=== PATIENT | male | born 1965 | race Caucasian/White ===

== ENCOUNTER 2017-04-02 11:30 | Emergency (ER) | payer OTHER ==
--- NOTE | 2017-04-02 14:32 | DIAGNOSTIC IMAGING REPORT ---
PROCEDURE: US SCROTUM/TESTICLE INDICATION: SCROTAL SWELLING TECHNIQUE: Samson scale and color Doppler sonographic images through the scrotum were obtained. COMPARISON: None. FINDINGS: The right testicle measures 3.9 x 2.0 x 2.6 cm and the left measures 4.1 x 2.2 x 2.5 cm Both testicles demonstrate homogeneous echotexture without solid mass, cyst, or numerous microcalcifications. Color Doppler imaging demonstrates normal and symmetric arterial and venous testicular flow. No suspicious hyperemia. The epididymi are normal in size, echotexture, and vascularity. Small hydroceles are present bilaterally. No significant scrotal skin thickening. Partially reducible left inguinal hernia. Defect in the fascia approximately 1.1 cm. Does not appear to extend into the scrotum IMPRESSION: 1. Partially reducible left inguinal hernia. Defect in the fascia approximately 1.1 cm. Does not appear to extend into the scrotum 2. Small bilateral hydroceles
--- NOTE | 2017-04-02 15:01 | ED NURSING NOTES ---
Clinical Report - Nurses [facility] [address] [place] [address] 04/02/2017 11:32 Patient: EDUIN CONCEPCION TRIAGE Triage time 12:04. Acuity: LEVEL 3. Chief Complaint: ABDOMINAL PAIN and NAUSEA. Alert. No acute distress. DESEAN COMA SCORE: [place] Coma Scale: 15- eyes open spontaneously (4); best verbal response- oriented x 4 (5); best motor response- obeys commands (6). --12:12 Sulema King R.N. 12:06 04/02/17. BP: 106/73. HR: 87. RR: 18. O2 saturation: 98% on room air. Temp: 98.2 F (oral). Pain level now: 05/19. --12:12 Sulema King R.N. Weight: 86.6 kg stated. Height/Length: 71 inches Per Patient. BMI: 26.6. --12:11 Sulema King R.N. Medications TraZODone HCl Oral. --12:10 Sulema King R.N. Allergies No Known Drug Allergy. --12:10 Sulema King R.N. History Arrived by private vehicle. Historian: patient. Accompanied by family. Primary physician (Ana). Onset. (2 days getting worse). Describes the quality as "pain". Relates location as in the left lower quadrant. ( saw his doctor, then had US done at [place] (in February), has a referral to surgeon but hasn't seen him yet). ( from left testicle up into abd). SOCIAL HX: Former smoker. No alcohol use or drug use. FALL RISK ASSESSMENT: Fall risk assessment completed. No fall risk identified. FUNCTIONAL ASSESSMENT: Functional assessment: no impairments noted. LEARNING NEEDS ASSESSMENT: The learning needs assessment revealed no barriers. --12:12 Sulema King R.N. PROBLEMS: Night Terrors. Back Pain. --12:11 Sulema King R.N. ADDITIONAL SURGERIES: Back Surgery. --12:11 Sulema King R.N. Assessment GENERAL / NEURO / PSYCH: Alert. Oriented X 4. Appears in no acute distress. Patient appears calm and cooperative. RESPIRATORY: Respirations not labored. SKIN: Skin is warm and dry. --12:12 Sulema King R.N. Interventions ID band on patient. To treatment room. --12:12 Sulema King R.N. DISPOSITION / DISCHARGE Departure time: 1500. Condition at departure: unchanged and stable. No learning barriers present. Discharge instructions provided and reviewed with the patient and spouse. Patient and spouse verbalized understanding. Written instructions provided in Estonian. The patient was discharged by the nurse practitioner. He was discharged home and accompanied by spouse. He left the Emergency Department ambulatory and via private vehicle. Spouse driving. --15:00 Suzanne Salcido 14:59 04/02/17. BP: 108/66. HR: 78. RR: 16. O2 saturation: 98%. --15:00 Suzanne Salcido. Locked/Released at 04/02/2017 15:00 by Suzanne Salcido,
--- NOTE | 2017-04-02 15:01 | ED ORDER SUMMARY ---
..... Patient: EDUIN CONCEPCION OrderSheet [facility] VisitID: [id number] [address] [place] [address] 52y, M Registration Date/Time: 04/02/2017 ORDER SHEET Weight: 86.6 kg (stated) Allergies: No Known Drug Allergy GENERAL ORDERS: US Scrotum/Testicular (eval L ing hernia-increased pain, trouble urinating. Hernia x 3-4yrs. No prior imaging. Testicular pain) Urgent (13:13 04/02/2017 SThom A.R.N.P.) (Ac 13:14 Flavio) UA-Culture if indicated Urgent (13:43 04/02/2017 SThom A.R.N.P.) (Ack 13:46 ALawrence ER Tech1) (14:45 ALawrence ER Tech1) MEDICATION ORDERS: IV FLUIDS: ORDER SHEET NOTES: [Electronically signed by Suzanne Salcido (15:00 04/02/2017)] This document has not been locked and should not be saved in the medical record.
--- NOTE | 2017-04-02 15:01 | ED CLINICAL REPORT ---
Clinical Report - Physicians/Mid Levels [facility] [address] [place] [address] 04/02/2017 11:32 Patient: EDUIN CONCEPCION Time Seen: 1315 PM. Arrived- By private vehicle. Historian- patient. HISTORY OF PRESENT ILLNESS Chief Complaint: RIGHT and LEFT TESTICULAR PAIN and URINARY RETENTION. (painful L ing hernia). Is still present. The problem is described as moderate. No penile discharge or flank pain. He has had discomfort with urination and testicular pain. Sexual history is noncontributory. Similar symptoms previously: None. Recent medical care: The patient was seen recently at another facility in a clinic. REVIEW OF SYSTEMS No fever, chills, flank pain, hematuria or abdominal pain. No vomiting, diarrhea or back pain. PAST HISTORY See nurses notes. ( hernia x 3-4 yrs-no formal imaging or dx. Painful past wk). No history of hypertension or diabetes mellitus. Surgeries: Back surgery. SOCIAL HISTORY Former smoker. No alcohol use or drug use. ADDITIONAL NOTES The nursing notes have been reviewed. PHYSICAL EXAM Vital Signs: 04/02/2017 12:06 BP: 106/73. HR: 87. RR: 18. O2 saturation: 98%. Temp: 98.2 F. Pain level now: 7/10. Have been reviewed and appear to be correct. Appearance: Alert. Oriented X3. No acute distress. ENT: Normal external inspection. Neck: Neck supple. Respiratory: No respiratory distress. Abdomen: Soft and nontender. : Moderate left-sided hernia mass with tenderness (partially reducible). No erythema. Moderate tenderness (L inguinal area,testicle). No urethral discharge, genital lesion or scrotal swelling. Skin: Skin warm and dry. Normal skin color. Normal skin turgor. Neuro: Oriented X 3. LABS, X-RAYS, AND EKG Testicular Scan: (The right testicle measures 3.9 x 2.0 x 2.6 cm and the left measures 4.1 x 2.2 x 2.5 cm Both testicles demonstrate homogeneous echotexture without solid mass, cyst, or numerous microcalcifications. Color Doppler imaging demonstrates normal and symmetric arterial and venous testicular flow. No suspicious hyperemia. The epididymi are normal in size, echotexture, and vascularity. Small hydroceles are present bilaterally. No significant scrotal skin thickening. Partially reducible left inguinal hernia. Defect in the fascia approximately 1.1 cm. Does not appear to extend into the scrotum IMPRESSION: 1. Partially reducible left inguinal hernia. Defect in the fascia approximately 1.1 cm. Does not appear to extend into the scrotum 2. Small bilateral hydroceles). The study was interpreted by the radiologist. Laboratory Tests: Laboratory tests have been ordered, with results reviewed and considered in the medical decision making process. UA-Culture if indicated: (DOROTA: 04/02/2017 14:00) ( MsgRcvd 04/02/2017 14:43) Final results Test Result Flag Units (Reference) URINE COLOR YELLOW URINE APPEARANCE CLEAR URINE GLUCOSE NEGATIVE (NEGATIVE) URINE BILIRUBIN ICTOTEST NEGATIVE (NEGATIVE) URINE KETONE TRACE (NEGATIVE) URINE SPECIFIC GRAVITY >= 1.030 (1.010-1.030) URINE PH 6.0 (5.0-8.0) URINE PROTEIN 1+ (NEGATIVE) URINE UROBILINOGEN 0.2 EU/dL (0.2-1.0) URINE NITRITE NEGATIVE (NEGATIVE) URINE BLOOD NEGATIVE (NEGATIVE) URINE LEUK ESTERASE NEGATIVE (NEGATIVE) URINE RBC 0-1 rbc/hpf (0-1) URINE WBC 0-1 wbc/hpf (0-1) URINE EPITHELIAL CELLS 1-3 EPI/hpf (0-5) URINE BACTERIA FEW (1+) (NONE SEEN) URINE COMMENT CULT NOT INDICATED 20 CALCIUM OXALATE CRYSTALS/HPF1+ AMORPHOUS CRYSTALSURINE CULTURES ARE SET-UP BASED ON THE FOLLOWING CRITERIA:POSITIVE NITRITEPOSITIVE LEUKOCYTE ESTERASEGREATER THAN 10 WHITE BLOOD CELLSMODERATE (2+) OR GREATER BACTERIA . PROGRESS AND PROCEDURES Course of Care: Hx and exam c/w hernia. Spoke with surgeon, Dr Israel, who advised pt could be seen next week for surg. consult. 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 Consult obtained from surgery. Phone consult only. Will see patient in 7 days. Patient counseled in person regarding the patient's test results, diagnosis and need for follow-up. Disposition: Discharged. Condition: stable. CLINICAL IMPRESSION Left inguinal hernia. No obstruction or gangrene. INSTRUCTIONS No strenuous activity. (Limit lifting. Call surgeon when you get home for an appointment next week. Ice the area when you are not up and about. If you start running fever over 100, the area becomes red and firm, or just marked increase in pain, return to ER>). Follow-up: Follow up with a specialist. Understanding of the discharge instructions verbalized by patient. Follow-up with: El Israel MD, General Surgeon, , [facility], [address] [place] [address] Follow up even if well. Call for the next available appointment. (Electronically signed by So Proctor A.R.N.P. 04/02/2017 17:27)
--- NOTE | 2017-04-02 15:01 | ED NURSING NOTES ---
Clinical Report - Nurses [facility] [address] [place] [address] 04/02/2017 11:32 Patient: EDUIN CONCEPCION TRIAGE Triage time 12:04. Acuity: LEVEL 3. Chief Complaint: ABDOMINAL PAIN and NAUSEA. Alert. No acute distress. DESEAN COMA SCORE: [place] Coma Scale: 15- eyes open spontaneously (4); best verbal response- oriented x 4 (5); best motor response- obeys commands (6). --12:12 Sulema King R.N. 12:06 04/02/17. BP: 106/73. HR: 87. RR: 18. O2 saturation: 98% on room air. Temp: 98.2 F (oral). Pain level now: 05/19. --12:12 Sulema King R.N. Weight: 86.6 kg stated. Height/Length: 71 inches Per Patient. BMI: 26.6. --12:11 Sulema King R.N. Medications TraZODone HCl Oral. --12:10 Sulema King R.N. Allergies No Known Drug Allergy. --12:10 Sulema King R.N. History Arrived by private vehicle. Historian: patient. Accompanied by family. Primary physician (Ana). Onset. (2 days getting worse). Describes the quality as "pain". Relates location as in the left lower quadrant. ( saw his doctor, then had US done at [facility] (in February), has a referral to surgeon but hasn't seen him yet). ( from left testicle up into abd). SOCIAL HX: Former smoker. No alcohol use or drug use. FALL RISK ASSESSMENT: Fall risk assessment completed. No fall risk identified. FUNCTIONAL ASSESSMENT: Functional assessment: no impairments noted. LEARNING NEEDS ASSESSMENT: The learning needs assessment revealed no barriers. --12:12 Sulema King R.N. PROBLEMS: Night Terrors. Back Pain. --12:11 Sulema King R.N. ADDITIONAL SURGERIES: Back Surgery. --12:11 Sulema King R.N. Assessment GENERAL / NEURO / PSYCH: Alert. Oriented X 4. Appears in no acute distress. Patient appears calm and cooperative. RESPIRATORY: Respirations not labored. SKIN: Skin is warm and dry. --12:12 Sulema King R.N. Interventions ID band on patient. To treatment room. --12:12 Sulema King R.N. DISPOSITION / DISCHARGE Departure time: 1500. Condition at departure: unchanged and stable. No learning barriers present. Discharge instructions provided and reviewed with the patient and spouse. Patient and spouse verbalized understanding. Written instructions provided in Divehi. The patient was discharged by the nurse practitioner. He was discharged home and accompanied by spouse. He left the Emergency Department ambulatory and via private vehicle. Spouse driving. --15:00 Suzanne Salcido 14:59 04/02/17. BP: 108/66. HR: 78. RR: 16. O2 saturation: 98%. --15:00 Suzanne Salcido. Locked/Released at 04/02/2017 15:00 by Suzanne Salcido,
--- NOTE | 2017-04-02 15:01 | ED ORDER SUMMARY ---
..... Patient: EDUIN CONCEPCION OrderSheet [facility] VisitID: [id number] [address] [place] [address] 52y, M Registration Date/Time: 04/02/2017 ORDER SHEET Weight: 86.6 kg (stated) Allergies: No Known Drug Allergy GENERAL ORDERS: US Scrotum/Testicular (eval L ing hernia-increased pain, trouble urinating. Hernia x 3-4yrs. No prior imaging. Testicular pain) Urgent (13:13 04/02/2017 SThom A.R.N.P.) (Ac 13:14 Flavio) UA-Culture if indicated Urgent (13:43 04/02/2017 SThom A.R.N.P.) (Ack 13:46 ALawrence ER Tech1) (14:45 ALawrence ER Tech1) MEDICATION ORDERS: IV FLUIDS: ORDER SHEET NOTES: [Electronically signed by Suzanne Salcido (15:00 04/02/2017)] This document has not been locked and should not be saved in the medical record.
--- NOTE | 2017-04-02 15:01 | ED CLINICAL REPORT ---
Clinical Report - Physicians/Mid Levels [facility] [address] [place] [address] 04/02/2017 11:32 Patient: EDUIN CONCEPCION Time Seen: 1315 PM. Arrived- By private vehicle. Historian- patient. HISTORY OF PRESENT ILLNESS Chief Complaint: RIGHT and LEFT TESTICULAR PAIN and URINARY RETENTION. (painful L ing hernia). Is still present. The problem is described as moderate. No penile discharge or flank pain. He has had discomfort with urination and testicular pain. Sexual history is noncontributory. Similar symptoms previously: None. Recent medical care: The patient was seen recently at another facility in a clinic. REVIEW OF SYSTEMS No fever, chills, flank pain, hematuria or abdominal pain. No vomiting, diarrhea or back pain. PAST HISTORY See nurses notes. ( hernia x 3-4 yrs-no formal imaging or dx. Painful past wk). No history of hypertension or diabetes mellitus. Surgeries: Back surgery. SOCIAL HISTORY Former smoker. No alcohol use or drug use. ADDITIONAL NOTES The nursing notes have been reviewed. PHYSICAL EXAM Vital Signs: 04/02/2017 12:06 BP: 106/73. HR: 87. RR: 18. O2 saturation: 98%. Temp: 98.2 F. Pain level now: 7/10. Have been reviewed and appear to be correct. Appearance: Alert. Oriented X3. No acute distress. ENT: Normal external inspection. Neck: Neck supple. Respiratory: No respiratory distress. Abdomen: Soft and nontender. : Moderate left-sided hernia mass with tenderness (partially reducible). No erythema. Moderate tenderness (L inguinal area,testicle). No urethral discharge, genital lesion or scrotal swelling. Skin: Skin warm and dry. Normal skin color. Normal skin turgor. Neuro: Oriented X 3. LABS, X-RAYS, AND EKG Testicular Scan: (The right testicle measures 3.9 x 2.0 x 2.6 cm and the left measures 4.1 x 2.2 x 2.5 cm Both testicles demonstrate homogeneous echotexture without solid mass, cyst, or numerous microcalcifications. Color Doppler imaging demonstrates normal and symmetric arterial and venous testicular flow. No suspicious hyperemia. The epididymi are normal in size, echotexture, and vascularity. Small hydroceles are present bilaterally. No significant scrotal skin thickening. Partially reducible left inguinal hernia. Defect in the fascia approximately 1.1 cm. Does not appear to extend into the scrotum IMPRESSION: 1. Partially reducible left inguinal hernia. Defect in the fascia approximately 1.1 cm. Does not appear to extend into the scrotum 2. Small bilateral hydroceles). The study was interpreted by the radiologist. Laboratory Tests: Laboratory tests have been ordered, with results reviewed and considered in the medical decision making process. UA-Culture if indicated: (DOROTA: 04/02/2017 14:00) ( MsgRcvd 04/02/2017 14:43) Final results Test Result Flag Units (Reference) URINE COLOR YELLOW URINE APPEARANCE CLEAR URINE GLUCOSE NEGATIVE (NEGATIVE) URINE BILIRUBIN ICTOTEST NEGATIVE (NEGATIVE) URINE KETONE TRACE (NEGATIVE) URINE SPECIFIC GRAVITY >= 1.030 (1.010-1.030) URINE PH 6.0 (5.0-8.0) URINE PROTEIN 1+ (NEGATIVE) URINE UROBILINOGEN 0.2 EU/dL (0.2-1.0) URINE NITRITE NEGATIVE (NEGATIVE) URINE BLOOD NEGATIVE (NEGATIVE) URINE LEUK ESTERASE NEGATIVE (NEGATIVE) URINE RBC 0-1 rbc/hpf (0-1) URINE WBC 0-1 wbc/hpf (0-1) URINE EPITHELIAL CELLS 1-3 EPI/hpf (0-5) URINE BACTERIA FEW (1+) (NONE SEEN) URINE COMMENT CULT NOT INDICATED 20 CALCIUM OXALATE CRYSTALS/HPF1+ AMORPHOUS CRYSTALSURINE CULTURES ARE SET-UP BASED ON THE FOLLOWING CRITERIA:POSITIVE NITRITEPOSITIVE LEUKOCYTE ESTERASEGREATER THAN 10 WHITE BLOOD CELLSMODERATE (2+) OR GREATER BACTERIA . PROGRESS AND PROCEDURES Course of Care: Hx and exam c/w hernia. Spoke with surgeon, Dr Israel, who advised pt could be seen next week for surg. consult. 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 Consult obtained from surgery. Phone consult only. Will see patient in 7 days. Patient counseled in person regarding the patient's test results, diagnosis and need for follow-up. Disposition: Discharged. Condition: stable. CLINICAL IMPRESSION Left inguinal hernia. No obstruction or gangrene. INSTRUCTIONS No strenuous activity. (Limit lifting. Call surgeon when you get home for an appointment next week. Ice the area when you are not up and about. If you start running fever over 100, the area becomes red and firm, or just marked increase in pain, return to ER>). Follow-up: Follow up with a specialist. Understanding of the discharge instructions verbalized by patient. Follow-up with: El Israel MD, General Surgeon, , [facility], [address] [place] [address] Follow up even if well. Call for the next available appointment. (Electronically signed by So Proctor A.R.N.P. 04/02/2017 17:27)
--- NOTE | 2017-04-02 17:27 | ED MAR SUMMARY ---
..... Medication Administration Record [facility] [address] [id number] Patient: EDUNI CONCEPCION Visit ID: [id number] 52y, M Weight: 86.6 kg Height/Length: 71 in BMI: 26.6 ALLERGIES: No Known Drug Allergy
--- NOTE | 2017-04-02 17:27 | ED DISCHARGE INSTRUCTIONS ---
Patient: EDUIN CONCEPCION General Instructions [facility] VisitID: [id number] [address] [place] [address] 52y, M Registration Date/Time: 04/02/2017 Left inguinal hernia. No obstruction or gangrene. INSTRUCTIONS No strenuous activity. (Limit lifting. Call surgeon when you get home for an appointment next week. Ice the area when you are not up and about. If you start running fever over 100, the area becomes red and firm, or just marked increase in pain, return to ER>). Follow-up: Follow up with a specialist. Understanding of the discharge instructions verbalized by patient. Follow-up with: El Israel MD, General Surgeon, , [facility], [address] [place] [address] Follow up even if well. Call for the next available appointment. ADDITIONAL INFORMATION Hernia [Adult] A hernia is a bulge of the intestines or surrounding tissues through a tear in the muscle of the abdomen or groin. This may occur as a result of excessive coughing, heavy lifting or being overweight. It can also occur at the site of prior surgery. When a hernia first appears it may be painful due to stretching and tearing of the muscle fibers. When you lie down, the bulge should reduce in size or disappear completely. If it does not, and you are unable to flatten it with your hand, medical attention is needed at once. Home Care: Avoid heavy lifting and straining or any activities that cause pain in the hernia. Follow Up with your physician as directed by our staff. Get Prompt Medical Attention if any of the following occur: Increasing size of the hernia Increasing pain in the hernia A hernia that does not get smaller when you lie down Hardening of the hernia Abdominal swelling, fever or repeated vomiting Pain moves to the lower right abdomen (just below the waistline) or spreads to the back You have been given the following additional information: Hernia (Inguinal, Ventral, Umbilical) No strenuous activity. (Electronically signed by So Proctor A.R.N.P. 04/02/2017 17:27)
--- NOTE | 2017-04-02 17:27 | ED MED RECONCILIATION SUMMARY ---
Patient: EDUIN CONCEPCION Medication Reconciliation Report [facility] VisitID: [id number] [address] [place] [address] 52y, M Registration Date/Time: 04/02/2017 Weight: 86.6 kg Height/Length: 71 in. BMI: 26.6 ALLERGIES: No Known Drug Allergy The patient's Home Medications are listed below: THE FOLLOWING MEDICATIONS NEED TO BE RECONCILED: TraZODone HCl Oral The source(s) of the original Home Medication information: Not obtained. The following Medications were given to the patient in the Emergency Department: None. The following Medications were prescribed to the patient: None.
--- NOTE | 2017-04-02 17:27 | ED MAR SUMMARY ---
..... Medication Administration Record [facility] [address], [place] [id number] Patient: EDUIN CONCEPCION Visit ID: [id number] 52y, M Weight: 86.6 kg Height/Length: 71 in BMI: 26.6 ALLERGIES: No Known Drug Allergy
--- NOTE | 2017-04-02 17:27 | ED DISCHARGE INSTRUCTIONS ---
Patient: EDUIN CONCEPCION General Instructions [facility] VisitID: [id number] [address] [place] [address] 52y, M Registration Date/Time: 04/02/2017 Left inguinal hernia. No obstruction or gangrene. INSTRUCTIONS No strenuous activity. (Limit lifting. Call surgeon when you get home for an appointment next week. Ice the area when you are not up and about. If you start running fever over 100, the area becomes red and firm, or just marked increase in pain, return to ER>). Follow-up: Follow up with a specialist. Understanding of the discharge instructions verbalized by patient. Follow-up with: El Israel MD, General Surgeon, , [facility], [address] [place] [address] Follow up even if well. Call for the next available appointment. ADDITIONAL INFORMATION Hernia [Adult] A hernia is a bulge of the intestines or surrounding tissues through a tear in the muscle of the abdomen or groin. This may occur as a result of excessive coughing, heavy lifting or being overweight. It can also occur at the site of prior surgery. When a hernia first appears it may be painful due to stretching and tearing of the muscle fibers. When you lie down, the bulge should reduce in size or disappear completely. If it does not, and you are unable to flatten it with your hand, medical attention is needed at once. Home Care: Avoid heavy lifting and straining or any activities that cause pain in the hernia. Follow Up with your physician as directed by our staff. Get Prompt Medical Attention if any of the following occur: Increasing size of the hernia Increasing pain in the hernia A hernia that does not get smaller when you lie down Hardening of the hernia Abdominal swelling, fever or repeated vomiting Pain moves to the lower right abdomen (just below the waistline) or spreads to the back You have been given the following additional information: Hernia (Inguinal, Ventral, Umbilical) No strenuous activity. (Electronically signed by So Proctor A.R.N.P. 04/02/2017 17:27)
--- NOTE | 2017-04-02 17:27 | ED MED RECONCILIATION SUMMARY ---
Patient: EDUIN CONCEPCION Medication Reconciliation Report [facility] VisitID: [id number] [address] [place] [address] 52y, M Registration Date/Time: 04/02/2017 Weight: 86.6 kg Height/Length: 71 in. BMI: 26.6 ALLERGIES: No Known Drug Allergy The patient's Home Medications are listed below: THE FOLLOWING MEDICATIONS NEED TO BE RECONCILED: TraZODone HCl Oral The source(s) of the original Home Medication information: Not obtained. The following Medications were given to the patient in the Emergency Department: None. The following Medications were prescribed to the patient: None.
== END 2017-04-02 15:00 | disposition home or self-care (01) ==
LOC: ED SRH 11:30
DX: K40.90 Unilateral inguinal hernia, without obstruction or gangrene, not specified as recurrent (principal)
CPT/HCPCS: 90004

== ENCOUNTER 2017-04-20 16:12 | Emergency (ER) | payer OTHER ==
--- NOTE | 2017-04-20 18:20 | DIAGNOSTIC IMAGING REPORT ---
PROCEDURE: XR KNEE 4 VIEWS - RIGHT INDICATION: TRAUMA/INJURY TECHNIQUE: Four views. COMPARISON: None. FINDINGS: Osseous structures and joint spaces are normal. IMPRESSION: 1. Normal right knee.
--- NOTE | 2017-04-20 18:20 | DIAGNOSTIC IMAGING REPORT ---
PROCEDURE: XR TIBIA AND FIBULA - RIGHT INDICATION: TRAUMA/INJURY TECHNIQUE: AP and lateral views. COMPARISON: None. FINDINGS: Osseous structures are normal. IMPRESSION: 1. Normal right tibia and fibula.
--- NOTE | 2017-04-20 18:21 | DIAGNOSTIC IMAGING REPORT ---
PROCEDURE: XR ANKLE 3 OR 4 VIEWS - RIGHT INDICATION: TRAUMA/INJURY TECHNIQUE: Four views. COMPARISON: None. FINDINGS: Osseous structures and joint spaces are normal. IMPRESSION: 1. Normal right ankle.
--- NOTE | 2017-04-20 18:22 | ED NURSING NOTES ---
Clinical Report - Nurses [facility] [address] [place] [address] 04/20/2017 16:14 Patient: EDUIN CONCEPCION TRIAGE Triage time 16:36. Acuity: LEVEL 3. Chief Complaint: INJURY TO RIGHT KNEE. INJURY TO THE RIGHT THIGH, RIGHT KNEE, RIGHT LEG, RIGHT ANKLE and RIGHT FOOT. DESEAN COMA SCORE: [place] Coma Scale: 15- eyes open spontaneously (4); best verbal response- oriented x 4 (5); best motor response- obeys commands (6). --16:48 Chivo Carvajal R.N. 16:36 04/20/17. BP: 122/68 (regular adult cuff) taken on the left arm, while sitting. HR: 75. RR: 16. O2 saturation: 97% on room air. Temp: 98.1 F (oral). Pain level now: 07/20. --16:48 Chivo Carvajal R.N. Weight: 89.8 kg stated. Height/Length: 71 inches Per Patient. BMI: 27.6. --16:45 Chivo Carvajal R.N. Medications TraZODone HCl Oral. --16:39 Chivo Carvajal R.N. Allergies No Known Drug Allergy. --16:39 Chivo Carvajal R.N. History Arrived by private vehicle. Historian: patient. Accompanied by family. Mechanism of injury: fell (Fell from a 6 foot ladder onto soft dirt. He landed with his right leg at an angle. C/o pain from the mid thigh to the heel. Obvious swelling. Onset approx 1130.). Treatment SERVER SERVICE ASSISTANT: None. SOCIAL HX: Light tobacco smoker (cigarette)- less than 1/2 a pack per day. No alcohol use or drug use. ABUSE ASSESSMENT: No report of abuse. --16:48 Chivo Carvajal R.N. PROBLEMS: Hernia. Night Terrors. Immunizations. Back Pain. --16:41 Chivo Carvajal R.N. ADDITIONAL SURGERIES: Back Surgery. --16:41 Chivo Carvajal R.N. Interventions ID band on patient. To treatment room. --16:48 Chivo Carvajal R.N. PHYSICAL ASSESSMENT late entry -16:36. To room via wheelchair. GENERAL / NEURO / PSYCH: Oriented X 4. Alert. Appears in pain. EXTREMITIES: Extremities do not exhibit normal ROM. Limited ROM present in the right thigh, right knee, right lower leg, right ankle and right foot. Capillary refill is less than 2 seconds in the extremities. Extremity pulses are within normal limits. Abnormal gait. The patient was unable to bear weight. Neuro-vascular status intact to the extremity. Right thigh. Right knee. Right leg. Right ankle. Right foot. ( right leg swelling). SKIN: Skin intact. Skin is warm and dry. --16:57 Chivo Carvajal R.N. NURSING PROGRESS NOTES 16:54 04/20/2017 Dilaudid (HYDROmorphone HCl PF) IM 2 mg given. Given in the right deltoid. Allergies verified, confirmed 5 rights and sedative warning given to the patient and patient's family. --16:55 Chivo Carvajal R.N. 16:54 04/20/2017 Phenergan (Promethazine HCl) IM 12.5 mg given. Given in the left deltoid. Allergies verified, confirmed 5 rights and sedative warning given to the patient and patient's family. --16:55 Chivo Carvajal R.N. Patient transported to radiology by stretcher with tech. --16:56 Chivo Carvajal R.N. late entry -16:40. Reassurance given. Two patient identifiers checked. Call light placed in reach. Bed placed in lowest position. Brakes of bed on. Patient ready for evaluation- chart flagged. ( at the bedside). --16:58 Chivo Carvajal R.N. 17:32 04/20/2017 Dilaudid IM Response: no adverse reaction pain is improving. Symptoms have improved the patient feels better. --17:57 Chivo Carvajal R.N. 17:32 04/20/2017 Phenergan IM Response: no adverse reaction pain is improving. Symptoms have improved the patient feels better. --17:57 Chivo Carvajal R.N. DISPOSITION / DISCHARGE Departure time: 1835. Condition at departure: improved and stable. No learning barriers present. Discharge instructions provided and reviewed with the patient and spouse. Reviewed warnings. Reviewed medication(s). Treatments reviewed. Patient verbalized understanding. Written instructions provided in Macedonian. The patient was discharged by the physician licensed nursing assistant. He was discharged home and accompanied by spouse. He left the Emergency Department ambulatory on crutches and via private vehicle. Spouse driving. --18:37 Chivo Carvajal R.N. 18:35 04/20/17. BP: 118/66 (regular adult cuff) taken on the left arm, while sitting. HR: 72. RR: 16. O2 saturation: 95% on room air. Temp: 98.1 F (oral). Pain level now: 01/17. --18:37 Chivo Carvajal R.N. Locked/Released at 04/20/2017 18:37 by Chivo Carvajal R.N.
--- NOTE | 2017-04-20 18:22 | ED CLINICAL REPORT ---
Clinical Report - Physicians/Mid Levels [place] [address] [place] [address] 04/20/2017 16:14 Patient: DEUIN CONCEPCION Arrived- By private vehicle. Historian- patient. HISTORY OF PRESENT ILLNESS Chief Complaint: Injury to right leg and right knee. The injury happened just prior to arrival. Occurred at home. The patient sustained a direct blow. Fell. Patient is experiencing moderate pain. Patient denies injury to the head or neck. (Patient fell from 6 feet After he was attempting To disturb the diabetes, when he fell as a started moving and he became scared. Patient will directly onto his extended right lower extremity and consequently into his right side, patient reports pain from ankle to his thigh. Denies prior major injuries to his thigh, knee, leg or ankle. Hasnot been able to ambulate since. Incident occurred just prior to arrival. Patient denies any to the head. Denies any loss of consciousness.). REVIEW OF SYSTEMS The patient complains of pain on weight bearing. No skin laceration. All systems otherwise negative, except as recorded above. PAST HISTORY See nurses notes. The patient has not had a prior injury to the same area. SOCIAL HISTORY Smoker- current status unknown. No alcohol use. ADDITIONAL NOTES The nursing notes have been reviewed. PHYSICAL EXAM Appearance: Alert. No acute distress. Head: Head atraumatic. ENT: Ears normal. CVS: Normal heart rate and rhythm. Heart sounds normal. Respiratory: No respiratory distress. Breath sounds normal. Abdomen: No visible injury. Soft. Back: Normal inspection. No tenderness. No vertebral point tenderness. Skin: Skin warm. Normal skin color. Extremities: Right hip. No tenderness or swelling. Right thigh. (bulge mid femur.). Right knee: moderate tenderness and swelling located in the patella. No ecchymosis or puncture wound. Right leg: tenderness and swelling. Gait: (diff exam of Ivonne cassidy due to pain). He was unable to bear weight. Neuro, Vascular and Tendons: Vascular status intact. Capillary refill not prolonged. Motor intact. Tendon function intact. No functional tendon deficit. Neuro: Oriented X 3. LABS, X-RAYS, AND EKG Rt Knee X-ray: (IMPRESSION: 1. Normal right knee. Electronically Final signed by:Usama Crooks MD 04/20/2017 6:15:48 PM). Rt Tib/Fib X-ray: (IMPRESSION: 1. Normal right tibia and fibula. Electronically Final signed by:Usama Crooks MD 04/20/2017 6:14:59 PM). Rt Ankle X-ray: (IMPRESSION: 1. Normal right ankle. Electronically Final signed by:Usama Crooks MD 04/20/2017 6:16:38 PM). PROGRESS AND PROCEDURES Splint Application: Time: 1839Apr 20 2017. Knee immobilizer applied to right lower extremity. Splint applied by tech with direct supervision by me. Reassessed extremity following splint application. Neurovascular intact. Follow-up recommended within 5 days. Fitted for crutches by the tech. Course of Care: Patient with a quad bulge, concerning for a quad injury, difficult exam, patient has difficulty with range of motion of the right knee, secondary to recent injury, no signs of fracture of the right knee, and distal femur, tib-fib or any signs of fracture to the right ankle. Patient is otherwise stable, no injury to the head or neck. Patient placed in a brace, and is to follow up outpatient. Patient is stable. Physical exam findings are improved. Symptoms better. Patient/family counseled. Disposition: Discharged. CLINICAL IMPRESSION Sprain. Muscle strain of the anterior aspect of the left lower leg. Muscle tear of the anterior aspect of the right lower leg. Sprain of the tibiofibular ligament of the right ankle. INSTRUCTIONS Apply ice. Use crutches. Elevate affected areas above chest level. No weight bearing. Do not work for seven days. Prescription Medications: Hydrocodone/APAP 7.5mg / 325mg: take 1 orally every 6 hours. Dispense twenty-five (25). No refill. Motrin 800 mg tablets: take 1 tablet orally every 8 hours for 5 days, as needed for pain. Dispense twenty (20). No refill. Substitution is permissible. Follow-up: Follow up with a specialist. [facility] with: [facility], , [address] , [place], [phone] Follow up. Call for an appointment. (Electronically signed by Narcisa Beckford P.A.-C 04/20/2017 19:04)
--- NOTE | 2017-04-20 18:22 | ED ORDER SUMMARY ---
..... Patient: EDUIN CONCEPCION OrderSheet [facility] VisitID: [id number] [place] [address] 52y, M Registration Date/Time: 04/20/2017 ORDER SHEET Weight: 89.8 kg (stated) Allergies: No Known Drug Allergy GENERAL ORDERS: Knee 4V Right Urgent (16:49 04/20/2017 EKoroleva P.A.-C) (Ack 16:52 KHoerner) (17:11 Del) Tibia/Fibula Right Urgent (16:49 04/20/2017 EKoroleva P.A.-C) (Ack 16:52 KHoerner) (17:11 Del) Ankle 3 or 4V Right Urgent (16:49 04/20/2017 EKoroleva P.A.-C) (Ack 16:52 KHoerner) (17:11 Del) Knee Immobilizer (18:11 04/20/2017 EKoroleva P.A.-C) (18:30 JSimbeck R.N.) Crutches (18:11 04/20/2017 EKoroleva P.A.-C) (18:30 JSimbeck R.N.) MEDICATION ORDERS: Dilaudid IM 2 mg (HIGH ALERT MEDICATION, NOW) (16:47 04/20/2017 EKoroleva P.A.-C) (16:55 JSimbeck R.N.) Phenergan IM 12.5 mg (HIGH ALERT MEDICATION, NOW) (16:47 04/20/2017 EKoroleva P.A.-C) (16:55 JSimbeck R.N.) IV FLUIDS: ORDER SHEET NOTES: [Electronically signed by Chivo Carvajal R.N. (18:38 04/20/2017)] [Electronically signed by Narcisa BeckfordAShane-C (19:04 04/20/2017)] [Electronically locked/signed by Chivo Carvajal R.N. (18:38 04/20/2017)]
--- NOTE | 2017-04-20 18:22 | ED ORDER SUMMARY ---
..... Patient: EDUIN CONCEPCION OrderSheet [facility] VisitID: [id number] [place] [address] 52y, M Registration Date/Time: 04/20/2017 ORDER SHEET Weight: 89.8 kg (stated) Allergies: No Known Drug Allergy GENERAL ORDERS: Knee 4V Right Urgent (16:49 04/20/2017 EKoroleva P.A.-C) (Ack 16:52 KHoerner) (17:11 Del) Tibia/Fibula Right Urgent (16:49 04/20/2017 EKoroleva P.A.-C) (Ack 16:52 KHoerner) (17:11 Del) Ankle 3 or 4V Right Urgent (16:49 04/20/2017 EKoroleva P.A.-C) (Ack 16:52 KHoerner) (17:11 Del) Knee Immobilizer (18:11 04/20/2017 EKoroleva P.A.-C) (18:30 JSimbeck R.N.) Crutches (18:11 04/20/2017 EKoroleva P.A.-C) (18:30 JSimbeck R.N.) MEDICATION ORDERS: Dilaudid IM 2 mg (HIGH ALERT MEDICATION, NOW) (16:47 04/20/2017 EKoroleva P.A.-C) (16:55 JSimbeck R.N.) Phenergan IM 12.5 mg (HIGH ALERT MEDICATION, NOW) (16:47 04/20/2017 EKoroleva P.A.-C) (16:55 JSimbeck R.N.) IV FLUIDS: ORDER SHEET NOTES: [Electronically signed by Chivo Carvajal R.N. (18:38 04/20/2017)] [Electronically signed by Narcisa BeckfordAShane-C (19:04 04/20/2017)] [Electronically locked/signed by Chivo Carvajal R.N. (18:38 04/20/2017)]
--- NOTE | 2017-04-20 18:22 | ED CLINICAL REPORT ---
Clinical Report - Physicians/Mid Levels [place] [address] [place] [address] 04/20/2017 16:14 Patient: EDUIN CONCEPCION Arrived- By private vehicle. Historian- patient. HISTORY OF PRESENT ILLNESS Chief Complaint: Injury to right leg and right knee. The injury happened just prior to arrival. Occurred at home. The patient sustained a direct blow. Fell. Patient is experiencing moderate pain. Patient denies injury to the head or neck. (Patient fell from 6 feet After he was attempting To disturb the diabetes, when he fell as a started moving and he became scared. Patient will directly onto his extended right lower extremity and consequently into his right side, patient reports pain from ankle to his thigh. Denies prior major injuries to his thigh, knee, leg or ankle. Hasnot been able to ambulate since. Incident occurred just prior to arrival. Patient denies any to the head. Denies any loss of consciousness.). REVIEW OF SYSTEMS The patient complains of pain on weight bearing. No skin laceration. All systems otherwise negative, except as recorded above. PAST HISTORY See nurses notes. The patient has not had a prior injury to the same area. SOCIAL HISTORY Smoker- current status unknown. No alcohol use. ADDITIONAL NOTES The nursing notes have been reviewed. PHYSICAL EXAM Appearance: Alert. No acute distress. Head: Head atraumatic. ENT: Ears normal. CVS: Normal heart rate and rhythm. Heart sounds normal. Respiratory: No respiratory distress. Breath sounds normal. Abdomen: No visible injury. Soft. Back: Normal inspection. No tenderness. No vertebral point tenderness. Skin: Skin warm. Normal skin color. Extremities: Right hip. No tenderness or swelling. Right thigh. (bulge mid femur.). Right knee: moderate tenderness and swelling located in the patella. No ecchymosis or puncture wound. Right leg: tenderness and swelling. Gait: (diff exam of Ivonne cassidy due to pain). He was unable to bear weight. Neuro, Vascular and Tendons: Vascular status intact. Capillary refill not prolonged. Motor intact. Tendon function intact. No functional tendon deficit. Neuro: Oriented X 3. LABS, X-RAYS, AND EKG Rt Knee X-ray: (IMPRESSION: 1. Normal right knee. Electronically Final signed by:Usama Crooks MD 04/20/2017 6:15:48 PM). Rt Tib/Fib X-ray: (IMPRESSION: 1. Normal right tibia and fibula. Electronically Final signed by:Usama Crooks MD 04/20/2017 6:14:59 PM). Rt Ankle X-ray: (IMPRESSION: 1. Normal right ankle. Electronically Final signed by:Usama Crooks MD 04/20/2017 6:16:38 PM). PROGRESS AND PROCEDURES Splint Application: Time: 1839Apr 20 2017. Knee immobilizer applied to right lower extremity. Splint applied by tech with direct supervision by me. Reassessed extremity following splint application. Neurovascular intact. Follow-up recommended within 5 days. Fitted for crutches by the tech. Course of Care: Patient with a quad bulge, concerning for a quad injury, difficult exam, patient has difficulty with range of motion of the right knee, secondary to recent injury, no signs of fracture of the right knee, and distal femur, tib-fib or any signs of fracture to the right ankle. Patient is otherwise stable, no injury to the head or neck. Patient placed in a brace, and is to follow up outpatient. Patient is stable. Physical exam findings are improved. Symptoms better. Patient/family counseled. Disposition: Discharged. CLINICAL IMPRESSION Sprain. Muscle strain of the anterior aspect of the left lower leg. Muscle tear of the anterior aspect of the right lower leg. Sprain of the tibiofibular ligament of the right ankle. INSTRUCTIONS Apply ice. Use crutches. Elevate affected areas above chest level. No weight bearing. Do not work for seven days. Prescription Medications: Hydrocodone/APAP 7.5mg / 325mg: take 1 orally every 6 hours. Dispense twenty-five (25). No refill. Motrin 800 mg tablets: take 1 tablet orally every 8 hours for 5 days, as needed for pain. Dispense twenty (20). No refill. Substitution is permissible. Follow-up: Follow up with a specialist. [facility] with: [facility], , [address] , [place], [address] Follow up. Call for an appointment. (Electronically signed by Narcisa Beckford P.A.-C 04/20/2017 19:04)
--- NOTE | 2017-04-20 18:22 | ED NURSING NOTES ---
Clinical Report - Nurses [facility] [address] [place] [address] 04/20/2017 16:14 Patient: EDUIN CONCEPCION TRIAGE Triage time 16:36. Acuity: LEVEL 3. Chief Complaint: INJURY TO RIGHT KNEE. INJURY TO THE RIGHT THIGH, RIGHT KNEE, RIGHT LEG, RIGHT ANKLE and RIGHT FOOT. DESEAN COMA SCORE: [place] Coma Scale: 15- eyes open spontaneously (4); best verbal response- oriented x 4 (5); best motor response- obeys commands (6). --16:48 Chivo Carvajal R.N. 16:36 04/20/17. BP: 122/68 (regular adult cuff) taken on the left arm, while sitting. HR: 75. RR: 16. O2 saturation: 97% on room air. Temp: 98.1 F (oral). Pain level now: 07/20. --16:48 Chivo Carvajal R.N. Weight: 89.8 kg stated. Height/Length: 71 inches Per Patient. BMI: 27.6. --16:45 Chivo Carvajal R.N. Medications TraZODone HCl Oral. --16:39 Chivo Carvajal R.N. Allergies No Known Drug Allergy. --16:39 Chivo Carvajal R.N. History Arrived by private vehicle. Historian: patient. Accompanied by family. Mechanism of injury: fell (Fell from a 6 foot ladder onto soft dirt. He landed with his right leg at an angle. C/o pain from the mid thigh to the heel. Obvious swelling. Onset approx 1130.). Treatment FIRE EQUIPMENT INSPECTOR: None. SOCIAL HX: Light tobacco smoker (cigarette)- less than 1/2 a pack per day. No alcohol use or drug use. ABUSE ASSESSMENT: No report of abuse. --16:48 Chivo Carvajal R.N. PROBLEMS: Hernia. Night Terrors. Immunizations. Back Pain. --16:41 Chivo Carvajal R.N. ADDITIONAL SURGERIES: Back Surgery. --16:41 Chivo Carvajal R.N. Interventions ID band on patient. To treatment room. --16:48 Chivo Carvajal R.N. PHYSICAL ASSESSMENT late entry -16:36. To room via wheelchair. GENERAL / NEURO / PSYCH: Oriented X 4. Alert. Appears in pain. EXTREMITIES: Extremities do not exhibit normal ROM. Limited ROM present in the right thigh, right knee, right lower leg, right ankle and right foot. Capillary refill is less than 2 seconds in the extremities. Extremity pulses are within normal limits. Abnormal gait. The patient was unable to bear weight. Neuro-vascular status intact to the extremity. Right thigh. Right knee. Right leg. Right ankle. Right foot. ( right leg swelling). SKIN: Skin intact. Skin is warm and dry. --16:57 Chivo Carvajal R.N. NURSING PROGRESS NOTES 16:54 04/20/2017 Dilaudid (HYDROmorphone HCl PF) IM 2 mg given. Given in the right deltoid. Allergies verified, confirmed 5 rights and sedative warning given to the patient and patient's family. --16:55 Chivo Carvajal R.N. 16:54 04/20/2017 Phenergan (Promethazine HCl) IM 12.5 mg given. Given in the left deltoid. Allergies verified, confirmed 5 rights and sedative warning given to the patient and patient's family. --16:55 Chivo Carvajal R.N. Patient transported to radiology by stretcher with tech. --16:56 Chivo Carvajal R.N. late entry -16:40. Reassurance given. Two patient identifiers checked. Call light placed in reach. Bed placed in lowest position. Brakes of bed on. Patient ready for evaluation- chart flagged. ( at the bedside). --16:58 Chivo Carvajal R.N. 17:32 04/20/2017 Dilaudid IM Response: no adverse reaction pain is improving. Symptoms have improved the patient feels better. --17:57 Chivo Carvajal R.N. 17:32 04/20/2017 Phenergan IM Response: no adverse reaction pain is improving. Symptoms have improved the patient feels better. --17:57 Chivo Carvajal R.N. DISPOSITION / DISCHARGE Departure time: 1835. Condition at departure: improved and stable. No learning barriers present. Discharge instructions provided and reviewed with the patient and spouse. Reviewed warnings. Reviewed medication(s). Treatments reviewed. Patient verbalized understanding. Written instructions provided in Bulgarian. The patient was discharged by the physician trust manager assistant. He was discharged home and accompanied by spouse. He left the Emergency Department ambulatory on crutches and via private vehicle. Spouse driving. --18:37 Chivo Carvajal R.N. 18:35 04/20/17. BP: 118/66 (regular adult cuff) taken on the left arm, while sitting. HR: 72. RR: 16. O2 saturation: 95% on room air. Temp: 98.1 F (oral). Pain level now: 01/17. --18:37 Chivo Carvajal R.N. Locked/Released at 04/20/2017 18:37 by Chivo Carvajal R.N.
--- NOTE | 2017-04-20 19:04 | ED MED RECONCILIATION SUMMARY ---
Patient: EDUIN CONCEPCION Medication Reconciliation Report [facility] VisitID: [id number] [address] [place] [address] 52y, M Registration Date/Time: 04/20/2017 Weight: 89.8 kg Height/Length: 71 in. BMI: 27.6 ALLERGIES: No Known Drug Allergy The patient's Home Medications are listed below: THE FOLLOWING MEDICATIONS NEED TO BE RECONCILED: TraZODone HCl Oral The source(s) of the original Home Medication information: Not obtained. The following Medications were given to the patient in the Emergency Department: Dilaudid [IM] IM 2 mg, administered: 04/20/2017 4:54:00 PM Phenergan [IM] IM 12.5 mg, administered: 04/20/2017 4:54:00 PM The following Medications were prescribed to the patient: Hydrocodone/APAP 7.5mg / 325mg: take 1 orally every 6 hours. Dispense twenty-five (25). No refill. -- Narcisa Beckford PShaneADigna Motrin 800 mg tablets: take 1 tablet orally every 8 hours for 5 days, as needed for pain. Dispense twenty (20). No refill. Substitution is permissible. -- Narcisa Beckford P.A.-C
--- NOTE | 2017-04-20 19:04 | ED MAR SUMMARY ---
..... Medication Administration Record [facility] [address] [place] [address] Patient: EDUIN CONCEPCION Visit ID: [id number] 52y, M Weight: 89.8 kg Height/Length: 71 in BMI: 27.6 ALLERGIES: No Known Drug Allergy Given 16:54 04/20/2017 Chivo Carvajal R.N. Medication Administered: DILAUDID [IM] (HYDROMORPHONE HCL PF), Dose: 2 mg IM. Medication Ordered: Dilaudid IM 2 mg (HIGH ALERT MEDICATION, NOW). Given 16:54 04/20/2017 Chivo Carvajal R.N. Medication Administered: PHENERGAN [IM] (PROMETHAZINE HCL), Dose: 12.5 mg IM. Medication Ordered: Phenergan IM 12.5 mg (HIGH ALERT MEDICATION, NOW).
--- NOTE | 2017-04-20 19:04 | ED MAR SUMMARY ---
..... Medication Administration Record [facility] [address] [place] [address] Patient: EDUIN CONCEPCION Visit ID: [id number] 52y, M Weight: 89.8 kg Height/Length: 71 in BMI: 27.6 ALLERGIES: No Known Drug Allergy Given 16:54 04/20/2017 Chivo Carvajal R.N. Medication Administered: DILAUDID [IM] (HYDROMORPHONE HCL PF), Dose: 2 mg IM. Medication Ordered: Dilaudid IM 2 mg (HIGH ALERT MEDICATION, NOW). Given 16:54 04/20/2017 Chivo Carvajal R.N. Medication Administered: PHENERGAN [IM] (PROMETHAZINE HCL), Dose: 12.5 mg IM. Medication Ordered: Phenergan IM 12.5 mg (HIGH ALERT MEDICATION, NOW).
--- NOTE | 2017-04-20 19:04 | ED DISCHARGE INSTRUCTIONS ---
Patient: EDUIN CONCEPCION General Instructions [facility] VisitID: [id number] [address] [place] [address] 52y, M Registration Date/Time: 04/20/2017 Sprain. Muscle strain of the anterior aspect of the left lower leg. Muscle tear of the anterior aspect of the right lower leg. Sprain of the tibiofibular ligament of the right ankle. INSTRUCTIONS Apply ice. Use crutches. Elevate affected areas above chest level. No weight bearing. Do not work for seven days. Prescription Medications: Hydrocodone/APAP 7.5mg / 325mg: take 1 orally every 6 hours. Dispense twenty-five (25). No refill. Motrin 800 mg tablets: take 1 tablet orally every 8 hours for 5 days, as needed for pain. Dispense twenty (20). No refill. Substitution is permissible. Follow-up: Follow up with a specialist. Follow-up with: [facility], , [address], [place] [phone] Follow up. Call for an appointment. ADDITIONAL INFORMATION Sprain, Knee A sprain is an injury to the ligaments or capsule that holds a joint together. There are no broken bones. Most sprains take three to six weeks to heal. If the ligament is completely torn (severe sprain), it can take months to recover from. Most knee sprains are treated with a splint, knee immobilizer or elastic wrap for support. Severe sprains may require surgery. Home care The following guidelines will help you care for your injury at home: Stay off the injured leg as much as possible until you can walk on it without pain. If you have a lot of pain with walking, crutches or a walker may be prescribed. (These can be rented or purchased at many pharmacies and surgical or orthopedic supply stores). Follow your doctor's advice regarding when to begin bearing weight on that leg. Keep your leg elevated to reduce pain and swelling. When sleeping, place a pillow under the injured leg. When sitting, support the injured leg so it is level with your waist. This is very important during the first 48 hours. Apply an ice pack (ice cubes in a plastic bag, wrapped in a towel) over the injured area for 20 minutes every 12 hours the first day. You can place the ice pack directly over the splint. If a Velcro knee immobilizer was applied, you can open this to apply the ice pack directly to the knee. Continue with ice packs 34 times a day for the next two days, then as needed for the relief of pain and swelling. You may use acetaminophen or ibuprofen to control pain, unless another pain medicine was prescribed. If you have chronic liver or kidney disease or ever had a stomach ulcer or GI bleeding, talk with your doctor before using these medicines. If you were given a splint, keep it completely dry at all times. Bathe with your splint out of the water, protected with a large plastic bag, rubber-banded at the top end. If a fiberglass splint gets wet, you can dry it with a hair-dryer. If you have a Velcro knee immobilizer, you can remove this to bathe, unless told otherwise. Follow-up care Follow up with your doctor as advised. Any X-rays you had today dont show any broken bones, breaks, or fractures. Sometimes fractures dont show up on the first X-ray. Bruises and sprains can sometimes hurt as much as a fracture. These injuries can take time to heal completely. If your symptoms dont improve or they get worse, talk with your doctor. You may need a repeat X-ray. When to seek medical care Get prompt medical attention if any of the following occur: The plaster cast or splint becomes wet or soft The fiberglass cast or splint remains wet for more than 24 hours Pain or swelling increases Toes become cold, blue, numb or tingly Knee Sprain, Collateral Ligaments The knee is a hinge joint supported by four strong ligaments. The two ligaments inside the knee (cruciate ligaments) protect this joint from excess forward and backward movement. The ligaments on the outside of the joint (collateral ligaments) prevent mzjq-rc-cidk motion. The medial collateral ligament (MCL) is located on the inner side of the joint; and the lateral collateral ligament (LCL) is on the outer side of the joint. You have sprained one or both collateral ligaments. A sprain is a tearing of a ligament. The tear may be partial or complete. Diagnosis is made by physical exam. In the case of an acute injury, the knee may be too swollen or painful to examine fully. A more accurate exam can be performed after the initial swelling goes down. Symptoms of a knee sprain include immediate knee swelling, pain, and difficulty walking.Initial treatment includes resting the joint, splinting to reduce movement of the joint, use of ice to reduce swelling and pain. Non-steroidal anti-inflammatory drugs (NSAIDs), such as ibuprofen, may be prescribed. Most sprains will heal in one to four weeks.A severe injury can take three to four months to heal and requires rehabilitation exercises. Surgery is usually not required for sprains involving only the collateral ligaments. Home care The following guidelines will help you care for your injury at home: Stay off the injured leg as much as possible until you can walk on it without pain. If you have a lot of pain while walking, crutches, or a walker may be prescribed. (These can be rented or purchased at many pharmacies and surgical or orthopedic supply stores.) Follow your doctor's advice regarding when to begin bearing weight on that leg. If you were given a pghz-eoz-ruhk closure knee brace, you can remove this to bathe, but leave it in place when walking, sitting, or lying down (unless told otherwise). Apply an ice pack (ice cubes in a plastic bag, wrapped in a towel) over the injured area for 20 minutes every 12 hours the first day. If a utrf-dab-ccbf closure knee brace was applied, you can open this to apply the ice pack directly to the knee. Continue with ice packs 34 times a day for the next two days, then as needed for the relief of pain and swelling. You may use acetaminophen or ibuprofen to control pain, unless another pain medicine was prescribed. If you have chronic liver or kidney disease or ever had a stomach ulcer or GI bleeding, talk with your doctor before using these medicines. Follow-up care Follow up with the referral doctor, or as advised by our staff. Any X-rays you had today dont show any broken bones, breaks, or fractures. Sometimes fractures dont show up on the first X-ray. Bruises and sprains can sometimes hurt as much as a fracture. These injuries can take time to heal completely. If your symptoms dont improve or they get worse, talk with your doctor. You may need a repeat X-ray. When to seek medical care Get prompt medical attention if any of the following occur: Pain or swelling worsens Shortness of breath or chest pain Swelling or redness or pain of the calf or thigh Muscle Strain,Extremity A MUSCLE STRAIN is a stretching and tearing of muscle fibers. This causes pain, especially with motion of that muscle. There may also be some swelling and bruising. Home Care: 1) Keep the injured area raised to reduce pain and swelling. This is especially important during the first 48 hours. 2) Make an ice pack (ice cubes in a plastic bag, wrapped in a towel) and apply for 20 minutes every 1-2 hours the first day. You should continue with ice packs 3-4 times a day for the second and third days. Unless otherwise instructed, on the fourth day you may begin hot soaks or hot packs (small towel soaked in hot water) 3-4 times a day while you gently exercise the involved area. 3) You may use acetaminophen (Tylenol) or ibuprofen (Motrin, Advil) to control pain, unless another medicine was prescribed. [ NOTE : If you have chronic liver or kidney disease or ever had a stomach ulcer or GI bleeding, talk with your doctor before using these medicines.] 4) For LEG STRAINS: If CRUTCHES have been recommended, do not bear full weight on the injured leg until you can do so without pain. You may return to sports when you are able to hop and run on the injured leg without pain. Follow Up with your doctor or this facility if you are not improving within the next five days. Get Prompt Medical Attention if any of the following occur: -- Fingers or toes become swollen, cold, blue, numb or tingly -- Pain or swelling increases Sprain, Ankle,With X-Ray A sprain is an injury to the ligaments or capsule that holds a joint together. There are no broken bones. Most sprains take from four to six weeks to heal. If the ligament is completely torn (severe sprain), it can take several months to recover. Mild to moderate sprains may be treated with an elastic wrap or an in-shoe splint to provide support and prevent re-injury. A mild sprain may not require any additional support. A severe sprain may require surgery to repair. Home care The following guidelines will help you care for your injury at home: Stay off the injured leg as much as possible until you can walk on it without pain. If you have a lot of pain with walking, crutches or a walker may be prescribed. (These can be rented or purchased at many pharmacies and surgical or orthopedic supply stores). Follow your doctor's advice regarding when to begin bearing weight on that leg. Keep your leg elevated to reduce pain and swelling. When sleeping, place a pillow under the injured leg. When sitting, support the injured leg so it is level with your waist. This is very important during the first 48 hours. Apply an ice pack (ice cubes in a plastic bag, wrapped in a towel) over the injured area for 20 minutes every 12 hours the first day. You can place the ice pack directly over the splint/cast. If you were given a boot, open it to apply the ice pack. Continue with ice packs 34 times a day for the next two days, then as needed for the relief of pain and swelling. You may use acetaminophen or ibuprofen to control pain, unless another pain medicine was prescribed. If you have chronic liver or kidney disease or ever had a stomach ulcer or GI bleeding, talk with your doctor before using these medicines. You may return to sports after healing, when you can run without pain. A sprained ankle is at risk for re-injury during the first six weeks. During that time, protect your ankle with an in-shoe splint that prevents tilting of your ankle from side to side. This is very important if you do active work or play sports during that time. Follow-up care Any X-rays you had today dont show any broken bones, breaks, or fractures. Sometimes fractures dont show up on the first X-ray. Bruises and sprains can sometimes hurt as much as a fracture. These injuries can take time to heal completely. If your symptoms dont improve or they get worse, talk with your doctor. You may need a repeat X-ray. When to seek medical care Get prompt medical attention if any of the following occur: The plaster cast or splint gets wet or soft The fiberglass cast or splint gets wet and does not dry for 24 hours Pain or swelling increases, or redness appears Toes become cold, blue, numb or tingly Re-injure your ankle Hydrocodone Bitartrate, Acetaminophen Oral tablet What is this medicine? ACETAMINOPHEN; HYDROCODONE (a set a KASSANDRA lexis fen; yo droe KOE done) is a pain reliever. It is used to treat mild to moderate pain. How should I use this medicine? Take this medicine by mouth. Swallow it with a full glass of water. Follow the directions on the prescription label. If the medicine upsets your stomach, take the medicine with food or milk. Do not take more than you are told to take. Talk to your preparatory technician regarding the use of this medicine in children. This medicine is not approved for use in children. What side effects may I notice from receiving this medicine? Side effects that you should report to your doctor or health palliative care nurse as soon as possible: allergic reactions like skin rash, itching or hives, swelling of the face, lips, or tongue breathing problems confusion feeling faint or lightheaded, falls stomach pain yellowing of the eyes or skin Side effects that usually do not require medical attention (report to your doctor or health palliative care nurse if they continue or are bothersome): nausea, vomiting stomach upset What may interact with this medicine? alcohol antihistamines isoniazid medicines for depression, anxiety, or psychotic disturbances medicines for sleep muscle relaxants naltrexone narcotic medicines (opiates) for pain phenobarbital ritonavir tramadol What if I miss a dose? If you miss a dose, take it as soon as you can. If it is almost time for your next dose, take only that dose. Do not take double or extra doses. Where should I keep my medicine? Keep out of the reach of children. This medicine can be abused. Keep your medicine in a safe place to protect it from theft. Do not share this medicine with anyone. Selling or giving away this medicine is dangerous and against the law. Store at room temperature between 15 and 30 degrees C (59 and 86 degrees F). Protect from light. Keep container tightly closed. Throw away any unused medicine after the expiration date. Discard unused medicine and used packaging carefully. Pets and children can be harmed if they find used or lost packages. What should I tell my health care provider before I take this medicine? They need to know if you have any of these conditions: brain tumor Crohn's disease, inflammatory bowel disease, or ulcerative colitis drink more than 3 alcohol-containing drinks per day drug abuse or addiction head injury heart or circulation problems kidney disease or problems going to the bathroom liver disease lung disease, asthma, or breathing problems an unusual or allergic reaction to acetaminophen, hydrocodone, other opioid analgesics, other medicines, foods, dyes, or preservatives or trying to get breast-feeding What should I watch for while using this medicine? Tell your doctor or health palliative care nurse if your pain does not go away, if it gets worse, or if you have new or a different type of pain. You may develop tolerance to the medicine. Tolerance means that you will need a higher dose of the medicine for pain relief. Tolerance is normal and is expected if you take the medicine for a long time. Do not suddenly stop taking your medicine because you may develop a severe reaction. Your body becomes used to the medicine. This does NOT mean you are addicted. Addiction is a behavior related to getting and using a drug for a non-medical reason. If you have pain, you have a medical reason to take pain medicine. Your doctor will tell you how much medicine to take. If your doctor wants you to stop the medicine, the dose will be slowly lowered over time to avoid any side effects. You may get drowsy or dizzy when you first start taking the medicine or change doses. Do not drive, use machinery, or do anything that may be dangerous until you know how the medicine affects you. Stand or sit up slowly. There are different types of narcotic medicines (opiates) for pain. If you take more than one type at the same time, you may have more side effects. Give your health care provider a list of all medicines you use. Your doctor will tell you how much medicine to take. Do not take more medicine than directed. Call emergency for help if you have problems breathing. The medicine will cause constipation. Try to have a bowel movement at least every 2 to 3 days. If you do not have a bowel movement for 3 days, call your doctor or health palliative care nurse. Too much acetaminophen can be very dangerous. Do not take Tylenol (acetaminophen) or medicines that contain acetaminophen with this medicine. Many non-prescription medicines contain acetaminophen. Always read the labels carefully. You have been given the following additional information: Knee Sprain Knee Sprain: Collateral Ligaments Muscle Strain, Extremity Sprain, Ankle, With X-Ray Hydrocodone Bitartrate, Acetaminophen Oral tablet No weight bearing. Do not work for seven days. (Electronically signed by Narcisa Beckford P.A.-C 04/20/2017 19:04)
--- NOTE | 2017-04-20 19:04 | ED MED RECONCILIATION SUMMARY ---
Patient: EDUIN CONCEPCION Medication Reconciliation Report [facility] VisitID: [id number] [address] [place] [address] 52y, M Registration Date/Time: 04/20/2017 Weight: 89.8 kg Height/Length: 71 in. BMI: 27.6 ALLERGIES: No Known Drug Allergy The patient's Home Medications are listed below: THE FOLLOWING MEDICATIONS NEED TO BE RECONCILED: TraZODone HCl Oral The source(s) of the original Home Medication information: Not obtained. The following Medications were given to the patient in the Emergency Department: Dilaudid [IM] IM 2 mg, administered: 04/20/2017 4:54:00 PM Phenergan [IM] IM 12.5 mg, administered: 04/20/2017 4:54:00 PM The following Medications were prescribed to the patient: Hydrocodone/APAP 7.5mg / 325mg: take 1 orally every 6 hours. Dispense twenty-five (25). No refill. -- Narcisa Beckford PShaneADigna Motrin 800 mg tablets: take 1 tablet orally every 8 hours for 5 days, as needed for pain. Dispense twenty (20). No refill. Substitution is permissible. -- Narcisa Beckford P.A.-C
== END 2017-04-20 18:35 | disposition home or self-care (01) ==
LOC: ED SRH 16:12
DX: S86.911A Strain of unspecified muscle(s) and tendon(s) at lower leg level, right leg, initial encounter (principal); S86.912A Strain of unspecified muscle(s) and tendon(s) at lower leg level, left leg, initial encounter; S93.431A Sprain of tibiofibular ligament of right ankle, initial encounter; W17.89XA Other fall from one level to another, initial encounter; Y93.9 Activity, unspecified; Y92.019 Unspecified place in single-family (private) house as the place of occurrence of the external cause; Y99.9 Unspecified external cause status; Z79.899 Other long term (current) drug therapy